=== PATIENT | male | born 1995 | race Caucasian/White ===

== ENCOUNTER 2022-11-25 12:52 | Emergency (ER) | payer BC, SELFPAY ==
[2022-11-25 13:25] VITALS: BP 137/80; PULSE 80; RESP 16; TEMP 36.4; O2SAT 98
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
== END 2022-11-25 14:36 | disposition home or self-care (01) ==
LOC: ANHED 14:26
PROVIDERS: Emergency Provider Student in an Organized Health Care Education/Training Program
DX: T21.22XA Burn of second degree of abdominal wall, initial encounter (principal); X19.XXXA Contact with other heat and hot substances, initial encounter; T31.0 Burns involving less than 10% of body surface
CPT/HCPCS: 99281

== ENCOUNTER 2024-01-07 11:40 | Emergency (ER) | payer BC, SELFPAY ==
[2024-01-07 11:48] VITALS: BP 111/73; PULSE 91; RESP 18; TEMP 36.4; O2SAT 98
--- NOTE | 2024-01-07 12:31 | PC.NURSE ---
Patient to robel stating, I made a chiropractor appointment at 3pm. I'm just going to do that . Patient ambulatory out of ED with steady gait and in no acute or obvious distress.
== END 2024-01-07 12:38 | disposition left against medical advice (07) ==
LOC: ANHED 12:36
DX: M54.9 Dorsalgia, unspecified (principal)
CPT/HCPCS: 99199